=== PATIENT | female | born 1960 | race Hispanic/Latino ===

== ENCOUNTER → 2020-04-06 | Day surgery (SDC) | payer OTHER ==
[~2020-04-06] MED LIST: HYOSCYAMINE 0.125 MG TAB ONE; JARDIANCE25 MG PO; KETAMINE HCL INJ 50 MG/ML 10 ML VIAL ONE; LANTUS 3ML100 UNITS/ SQ; LIDOCAINE HCL 2% LOCAL INJ 5 ML SDV VIAL INJ ONE; LISINOPRIL2.5 MG PO; METFORMIN HCL500 MG PO; MIDAZOLAM HCL 2 MG/2 ML VIAL ONE; PROPOFOL IV EMULSION 10 MG/ML 20 ML VIAL ONE
[2020-04-06 12:17] VITALS: BP 105/78
--- NOTE | 2020-04-06 12:41 | Operative Report ---
DATE OF PROCEDURE: 04/06/2020 SURGEON: Nestor Glover MD PROCEDURE: Colonoscopy with polypectomy. INDICATIONS FOR COLONOSCOPY: Colorectal cancer screening. MEDICATIONS: The patient was done under MAC, please see anesthesiologist's note. PROCEDURE IN DETAIL: With the patient in the left lateral decubitus position, a flexible fiberoptic Olympus colonoscope was inserted into the rectum with ease and advanced all the way to the cecum. A minute polyp in the cecum was removed per the cold biopsy forceps. An approximately 4 mm submucosal nodule was noted in the cecum and that was removed per hot snare polypectomy and site was hemoclipped x2. The scope was then withdrawn slowly and one minute polyp was hot biopsied from the distal ascending colon. Some scattered small diverticuli were noted throughout the colon. The transverse appeared grossly appeared to be within normal limits. An approximately 5 mm sessile polyp was removed per hot snare polypectomy from the descending colon. A minute polyp was hot biopsied from the sigmoid colon. The rectum grossly appeared to be within normal limits. The scope was then retroflexed into the distal rectum and small internal hemorrhoids were noted, none of which was actively bleeding. The scope was then straightened out, it was subsequently withdrawn, and the patient tolerated the procedure well. IMPRESSION: 1. Cecal polyps x2, one hot snared and site hemoclipped x2 and one cold biopsied. 2. Diverticulosis. 3. Ascending colon polyp, hot biopsied. 4. Descending colon polyp, hot snared. 5. Sigmoid colon polyp, hot biopsied. 6. Internal hemorrhoids, none actively bleeding. PLAN: Follow up histology. Initiate high-fiber, low-fat diet. Initiate high-fiber supplement. The patient might benefit from a followup colonoscopy in 3 years. Nestor Glover MD [facility] [place] /[id number] cc: Jaycee Arroyo MD
[2020-04-06 13:24] LABS: ANION GAP 12.7 mmol/L (8-16); BLOOD UREA NITROGEN 8 mg/dL (7-26); BUN/CREATININE RATIO 14 (6-25); CALCIUM 8.6 mg/dL (8.4-10.2); CARBON DIOXIDE 24 mmol/L (22-29); CHLORIDE 108 mmol/L (98-107); CREATININE, SERUM 0.58 mg/dL (0.57-1.11); EST GLOMERULAR FILTRATION RATE > 60 ML/MIN (60-); GLUCOSE 84 mg/dL (74-118); MAGNESIUM 2.2 MG/DL (1.3-2.1); POTASSIUM 3.7 mmol/L (3.5-5.1); SODIUM 141 mmol/L (136-145)
== END | disposition home or self-care (01) ==
LOC: OR 09:39
PROVIDERS: ATTEND Internal Medicine Gastroenterology
DX: Z12.11 Encounter for screening for malignant neoplasm of colon (principal); D12.0 Benign neoplasm of cecum; D12.2 Benign neoplasm of ascending colon; D12.4 Benign neoplasm of descending colon; K57.30 Diverticulosis of large intestine without perforation or abscess without bleeding; K63.89 Other specified diseases of intestine; K64.8 Other hemorrhoids; I10 Essential (primary) hypertension; K21.9 Gastro-esophageal reflux disease without esophagitis; Z91.041 Radiographic dye allergy status; Z01.810 Encounter for preprocedural cardiovascular examination; Z01.812 Encounter for preprocedural laboratory examination; Z11.59 Encounter for screening for other viral diseases; Z79.4 Long term (current) use of insulin; Z79.84 Long term (current) use of oral hypoglycemic drugs; Z68.33 Body mass index [BMI] 33.0-33.9, adult
CPT/HCPCS: 36415; 45380; 45384; 45385; 80048; 82948; 83735; 93005; J2001; J2250; J2704; U0002